=== PATIENT | female | born 1990 | race Asian ===

== ENCOUNTER 2023-10-31 16:55 | Inpatient (IN) | payer BC, SELFPAY ==
[2023-10-31] VITALS (9 sets, daily range): BP systolic 114–130; BP diastolic 56–79; PULSE 98–112; RESP 20; TEMP 36.9–37.8; O2SAT 95; BMI 35.2
[2023-10-31 18:44] LABS: Basophils Absolute Auto 0.01 K/uL (0.00-0.30); Basophils Percent Auto 0.1 % (0.0-3.0); Eosinophils Absolute Auto 0.01 K/uL (0.00-0.50); Eosinophils Percent Auto 0.1 % (0.0-7.0); Hemoglobin* 13.6 gm/dL (12.0-16.0); Immature Granulocytes Abs Auto 0.03 K/uL (0.00-0.30); Immature Granulocytes Pct Auto 0.3 %; Lymphocytes Percent Auto 5.9 % (20-44); Mean Corpuscular HGB Conc 32 gm/dL (32-36); Mean Corpuscular Hemoglobin 29 pg (26-34); Mean Corpuscular Volume 91 fL (80-100); Monocytes Percent Auto 6.1 % (0.0-11.0); Neutrophils Percent Auto 87.5 % (42.0-72.0); Platelet Count* 275 K/uL (140-440); RDW Coefficient of Variation % 13.5 % (11.5-15.5); Red Blood Count 4.62 m/uL (4.00-5.20); White Blood Count* 10.27 K/uL (4.50-11.00)
[2023-10-31 18:45] LABS: Slide Review Reflex No
--- NOTE | 2023-10-31 18:56 | PM.OBHPLI ---
OB - H&P: HPI Labor/Induction History of Present Illness Date Seen: 10/31/23 Chief Complaint: The patient is a 33 year old 1 para 0 at 38+6 weeks gestation by LMP and confirmed with 1st trimester US, who presents for IOL for diet controlled GDM. Chief complaint: Maternity Narrative: Anaid Edwards is a 33 year old at 38+6 weeks by LMP here for IOL for diet controlled GDM. has otherwise been uncomplicated, she is GBS negative rh+, rubella immune. She denies LOF, having occasional cramping. Baby is active. She has a mild headache today, but not significant enough to want to take tylenol. No swelling. Otherwise feeling well. History of Present Dating criteria: based on LMP care: good care Ultrasounds: normal 1st trimester US and normal mid trimester US complications: gestational diabetes (well controlled with diet) Medical complications: none Labs Blood type: O (+) positive Rubella: immune RPR/VDLR: nonreactive GBS status: negative HBsAG: negative Review of Systems Status of ROS: Reports: 6 or more systems reviewed and unremarkable except as noted in History and below Meds Home Medications and Allergies Home Medications Medication Instructions Recorded Confirmed Type No Known Home Medications 11/04/22 11/04/22 History Allergies Allergy/AdvReac Type Severity Reaction Status Date / Time No Known Drug Allergies Allergy Verified 11/04/22 11:23 OB - H&P: Exam Physical Exam: Vital signs: Temp Pulse BP 99.2 F 107 H 130/79 10/31/23 17:14 10/31/23 17:14 10/31/23 17:14 Constitutional: Constitutional: no acute distress Routine HEENT Exam: Head: Present atraumatic Eye: Present EOMI and PERRL ENT: Present mucous membranes moist Routine Neck Exam: Neck: Present full ROM Routine Respiratory Exam: Respiratory: Present CTA bilaterally Routine Cardiovascular Exam: Cardiovascular: RRR Routine Exam: Perineum Description: Normal Detailed Labor and Delivery Exam: Patient Gravid: Yes Dilation (cm): 1 Effacement (%): 60 Cervix position: mid Consistency: soft Cervical ripeness score: 8 Fetus (Single): Station: -1 Routine Back/Spine/Pelvis Exam: Back/Spine: full ROM Routine Skin Exam: Present intact Routine Neurological Exam: Present alert, oriented X3 and CN II-XII intact Routine Psychiatric Exam: Present normal affect OB - Results Labs Labs: Short CBC 10/31/23 Range/Units 18:36 WBC 10.27 (4.50-11.00) K/uL Hgb 13.6 (12.0-16.0) gm/dL Hct 42.0 (33.0-51.0) % Plt Count 275 (140-440) K/uL OB - Problem Based A/P Additional Plan (1) Term : Status: Acute (2) Gestational diabetes: Status: Acute Plan Cook catheter placed without difficulty. 60 mL in both the intrauterine and intravaginal balloons. Diabetes management per protocol. Delivery/Labor/Induction Plan Induction method: Intracervical balloon catheter
[2023-10-31] MEDS: SODIUM CHLORIDE 0.9 % (FLUSH) 10 ML SYRINGE IVF (19:49)
[2023-10-31] MEDS: LACTATED RINGERS 1000 ML 1,000 ML 950 ML IV (19:49)
[2023-10-31] MEDS: LACTATED RINGERS 1000 ML 1,000 ML 125 ML IV (20:54)
[2023-10-31] MEDS: ACETAMINOPHEN 500 MG TABLET 1000 MG PO (21:06)
[2023-10-31] MEDS: MORPHINE 10 MG/ML inj IM (21:25)
[2023-10-31] MEDS: hydrOXYzine pamoate 25 MG CAPSULE 100 MG PO (21:26)
[2023-10-31] MEDS: OXYTOCIN 30 unit/500 ML in NS 30 UNIT/500 ML BAG IVPB (23:30)
[2023-11-01] VITALS (83 sets, daily range): BP systolic 103–139; BP diastolic 48–85; PULSE 69–121; RESP 16–18; TEMP 36.6–38.5; O2SAT 96–100
[2023-11-01] MEDS: ACETAMINOPHEN 500 MG TABLET 1000 MG PO ×3 (04:09→15:51)
[2023-11-01 04:34] LABS: Basophils Absolute Auto 0.01 K/uL (0.00-0.30); Basophils Percent Auto 0.1 % (0.0-3.0); Eosinophils Absolute Auto 0.01 K/uL (0.00-0.50); Eosinophils Percent Auto 0.1 % (0.0-7.0); Hematocrit 39.3 % (33.0-51.0); Hemoglobin* 12.7 gm/dL (12.0-16.0); Immature Granulocytes Abs Auto 0.02 K/uL (0.00-0.30); Immature Granulocytes Pct Auto 0.2 %; Lymphocytes Percent Auto 9.6 % (20-44); Mean Corpuscular HGB Conc 32 gm/dL (32-36); Mean Corpuscular Hemoglobin 29 pg (26-34); Mean Corpuscular Volume 91 fL (80-100); Monocytes Percent Auto 7.7 % (0.0-11.0); Neutrophils Percent Auto 82.3 % (42.0-72.0); Platelet Count* 246 K/uL (140-440); RDW Coefficient of Variation % 13.6 % (11.5-15.5); Red Blood Count 4.34 m/uL (4.00-5.20); White Blood Count* 9.36 K/uL (4.50-11.00)
[2023-11-01 04:35] LABS: Slide Review Reflex No
[2023-11-01] MEDS: LACTATED RINGERS 1000 ML 1,000 ML 125 ML IV ×2 (04:55→11:48)
[2023-11-01] MEDS: LACTATED RINGERS 1000 ML 1,000 ML 1125 ML IV (09:34)
[2023-11-01] MEDS: ROPIVACAINE 0.2% 100 ml 100 ML 12 MG EPIDURAL (11:41)
--- NOTE | 2023-11-01 11:48 | PM.ANBPRC ---
[facility] Medical History Gestational diabetes Social History 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 She has a high school education She exercises once a week She does not smoke or use recreational drugs She drinks alcohol 1-2 drinks a week What is your current living situation?: I presently have a place to live Problems where you live: no known problems In the past 12 months, utilities in danger of being shut off: no In past 12 months, lack of transportation kept you from medical appts, meetings, work, or getting things needed for daily living: no In the past 12 mos, have been you worried that your food would run out before you had money to buy more?: never true In the past 12 mos, the food you bought just didn't last and you didn't have money to buy more?: never true Smoking Status: Never smoker How often does anyone, including family, friends and others, physically hurt you: never How often does anyone, including family, friends and others, insult or talk down to you: never How often does anyone, including family, friends and others, threaten you with harm: never How often does anyone, including family, friends and others, scream or curse at you: never Meds Home Medications and Allergies Home Medications Medication Instructions Recorded Confirmed Type docosahexaenoic acid 1 cap PO DAILY 10/31/23 10/31/23 History Allergies Allergy/AdvReac Type Severity Reaction Status Date / Time No Known Drug Allergies Allergy Verified 11/01/23 07:43 Results Labs Labs: Laboratory Results - last 24 hr 10/31/23 11/01/23 18:36 04:25 WBC 10.27 9.36 RBC 4.62 4.34 Hgb 13.6 12.7 Hct 42.0 39.3 MCV 91 91 MCH 29 29 MCHC 32 32 RDW Coeff of Sunitha 13.5 13.6 Plt Count 275 246 Neut % (Auto) 87.5 H 82.3 H Lymph % (Auto) 5.9 L 9.6 L Pickens % (Auto) 6.1 7.7 Eos % (Auto) 0.1 0.1 Baso % (Auto) 0.1 0.1 Neut # (Auto) 9.00 H 7.70 H Lymph # (Auto) 0.60 L 0.90 Pickens # (Auto) 0.60 0.70 Eos # (Auto) 0.01 0.01 Baso # (Auto) 0.01 0.01 Abs Immat Gran (auto) 0.03 0.02 Imm/Tot Granulo (auto) 0.3 0.2 Blood Type O Positive Antibody Screen NEGATIVE Vital Signs Vital Signs: Last Vital Signs Temp 98.8 F 11/01/23 11:30 Pulse 85 11/01/23 11:47 Resp 18 11/01/23 09:33 BP 120/65 11/01/23 11:47 Pulse Ox 96 11/01/23 02:49 Weight: 90.356 kg Height: 160.02 cm Anesthesia Procedures Epidural Insertion Patient Location: OB Start Time: 11:20 Stop Time: 11:48 Start Date: 11/01/23 Stop Date: 11/01/23 Reason for Block: procedure for pain Patient Position: sitting Performed By: Carson Dumont Preanesthetic Checklist: IV checked, risks and benefits discussed, monitors and equipment checked, pre-op evaluation, timeout performed and anesthesia consent Prep: chlorhexidine gluconate Monitoring: blood pressure monitoring, continuous pulse oximetry and heart rate Approach: midline Vertebral Space: lumbar (1-5) Epidural Technique: NADINE saline Needle Type: Tuohy needle Injection Technique: continuous catheter Needle gauge: 17 Needle Length (cm): 10 cm Needle Insertion Depth (cm): 6 Catheter Gauge: 19 Catheter Type: multi-orifice Catheter at skin depth (cm): 13 Test Dose Result: negative and lidocaine 1.5% with epinephrine 1 to 200,000
--- NOTE | 2023-11-01 12:07 | P.OBPN_ITS ---
Subjective Date Seen: 11/01/23 Narrative: Anaid is a 33 at 39 weeks who started IOL last night for GDM. She had a cook catheter placed without difficulty on 10/31/23. She was noted to have a temp of 99 on admit and this increased to 100.5 overnight. Fever responded to acetaminophen and CBC was reassuring. She has had no other focal symptoms of infection. FHTs do tend to be tachycardic when temp increases, but category 1 after acetaminophen. The have been 2 prolonged decels this morning, one while sitting up for epidural. Patient is now comfortable with epidural and FHTs category 1. Objective Vital Signs: Last Vital Signs Temp 98.8 F 11/01/23 11:30 Pulse 81 11/01/23 12:03 Resp 18 11/01/23 09:33 BP 118/65 11/01/23 12:03 Pulse Ox 96 11/01/23 02:49 Pelvic Exam Dilation (cm): 5 Effacement (%): 90 Station: -1 Contractions Monitor mode: External Contraction Frequency: 2-4 Contraction pattern: Regular Contraction intensity: Moderate Pitocin Rate (mU/min): 4 Assessment Assessment: active labor and induction ongoing Station: -1 Amniotic Membrane Status: AROM (clear fluid) Status: Category l Heart Rate Baseline: 150 Consulting Technical Director Variability: Moderate (6-25) Monitor Accelerations: Absent Monitor Decelerations: Variable Plan Plan: Continue pitcoin per protocol. Blood sugar monitoring/management per protocol. Anticipate
[2023-11-01] MEDS: AMPICILLIN 2 GM in 0.9 % SODIUM CHLORIDE Mini-bag 100 ML IVPB ×2 (16:54→23:09)
--- NOTE | 2023-11-01 17:14 | PM.OBPNL ---
Subjective Date Seen: 11/01/23 Narrative: Mom developed chills and nausea around 1500, was hypoglycemic and temp went up to 99, acetaminophen given and 30 minutes later temp up to 101.3. FHTs 180-200 and given tachycardia and maternal fever, antibiotics ordered for presumed chorio. Given her temp at started last evening on arrival with temp of 99, flu and covid swabs also obtained. around the same time, she also developed tachysystole and pitocin turned down from 7 to 4 units. Objective Vital Signs: Last Vital Signs Temp 100.5 F H 11/01/23 17:00 Pulse 96 11/01/23 17:10 Resp 16 11/01/23 12:09 BP 112/57 L 11/01/23 17:10 Pulse Ox 96 11/01/23 02:49 Pelvic Exam Dilation (cm): 6 Effacement (%): 90 Station: 0 Contractions Monitor mode: External Contraction pattern: Irregular Contraction intensity: Moderate Pitocin Rate (mU/min): 4 Assessment Station: -1 Amniotic Membrane Status: AROM (clear fluid) Status: Category l Heart Rate Baseline: 190 Snf Variability: Moderate (6-25) Monitor Accelerations: Absent Monitor Decelerations: None Plan Plan: Discussed the [facility] Insulator Helper communications supervisor. Flu/covid swabs obtained Abx started for presumed chorio. If FHTs normalize with antipyretics and abx, will likely need IUPC to help titrate pitocin since she has not been making adequate cervical change. If FHTs do not normalize or no cervical change, will plan on .
--- NOTE | 2023-11-01 18:18 | P.OBCN_ITS ---
OB - CN: HPI Date of Consult Time Seen by Provider: 18:18 Date Seen: 11/01/23 Consult date: 11/01/23 Requesting Physician: Susanna Sutton MD Primary Care Provider: Susanna Sutton MD Consult Narrative Narrative: Anaid is a 33 year old G2 P 0010 at 39 weeks gestation that was admitted to the Center on 10/31/23 for IOL due to GDM A1. Her labor course has been complicated nonreassuring heart rate tracing. I was consulted at 1645 to review her NST and make recommendations. NST reviewed: * 1095-1142: tachycardia of 180-190s * 0013-0975: tachycardia of 180-190s * 0900: 5 minutes prolonged decel down to the 50s * 1132: 4 minutes prolonged decel down to the 70s * 1400: 2 minutes prolonged decel down to the 60 * 1500: tachycardia to 180-200s persistently. Moderate variability, positive acceleration and negative deceleration. Additionally, patient had a fever at 0400 Patient (100.5 and 100.9F) but wasn't diagnosed with chorioamnionitis and started on antibiotic until fever of 101.3@ around 1630. Amp and gent were started after that fever. During this time, she progressed to 5.5/75/0. She's only on 4u of pitocin and has been unable to titrate up due to nonreassuring NST. I performed a cervical exam and confirmed previous check of 5.5/75/0. She is still latent labor and cervix has been unchanged since noon. There is notable caput. I discussed with patient her clinical picture. I do recommend a delivery given that NST has not been reassuring for several hours with no cervical change. Her fevers are also getting worse. Patient is, of course, overwhelmed and emotional about the prospect of the delivery but understands why I am recommending the . The patient was consented for section and blood. She understands that the four main categories of risk include pain, bleeding, infection, and damage to surrounding structures. Regarding infection, she understands that we will be delivering appropriate antibiotics, however that the risk of infection following section still is approximately 5%, possibly higher given that she alrea dy has an intrauterine infection.She understands that though the risk is very low that there is always a risk of damage to the bladder, uterus, ovaries, fallopian tubes, bowels, ureters, or even the fetus. She understands that most injuries can be addressed at the time of surgery, however, such an injury may require additional surgeries to fix. Lastly, she understands that a section carries a risk of bleeding, and that while this bleeding can be addressed with multiple medical and surgical modalities (including hysterectomy), that there is the possibility of needing a blood transfusion. She has a higher risk of bleeding due to have labored with pitocin use and having chorioamnionitis. She reports she would accept a blood transfusion understanding the risks of a 1/200,000 risk of Hepatitis and 1/2,000,000 risk of HIV as well as the risk of having an allergic reaction to the blood products. She further understands that this reaction is typically mild, however can be severe inclu ding respiratory distress and necessitating ICU-level care. Lastly, she understands that a section does increase risks for future pregnancies and deliveries including, but not limited to, the risk of uterine rupture or placenta accreta. After counseling, Anaid and her spouse did take about 15 minutes to think about the recommendation. Ultimately, they opted to proceeding with delivery rather than to continue the induction. All questions answered to patient's satisfaction. Consent form signed. Of note, I was informed by charge nurse afterwards that the gentamicin had not been running this whole time as the clamp was never released on the line. She received ampicillin but not gentamicin. An incident report was filed. I asked for a second IV to run the gentamicin and cli ndamycin at the same time for chorio/preoperative antibiotic. History of Present complications: gestational diabetes (well controlled with diet) History History 2 Elective abortions Para 1 Spontaneous abortions Hx # Term Pregnancies Ectopic pregnancies Hx # Pregnancies Multiple births Number of Living Children 0 Labs Blood type: O (+) positive Rubella: immune RPR/VDLR: nonreactive GBS status: negative HBsAG: negative OB Labs: Lab Assessment Start: 10/31/23 17:05 Freq: ONCE Status: Complete Protocol: PC.OBGBS Activity Type Activity Date Activity User E-sign Co-sign Detail Recorded Client Recorded Date Recorded By Document 10/31/23 17:12 HCR [id number] 10/31/23 17:12 HCR 10/31/23 17:12 Lab Assessment GBS Status negative GBS Additional Criteria None No Treatment Needed OK Are Labs Available Yes Maternal Blood Type O Maternal RH Factor Positive Evaluate Maternal Rubella Immune Status Immune Hepatitis B Surface Antigen Negative Maternal HIV Status Negative Maternal Syphillis (RPR) Status Negative [facility] Medical History Gestational diabetes Social History 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 She has a high school education She exercises once a week She does not smoke or use recreational drugs She drinks alcohol 1-2 drinks a week What is your current living situation?: I presently have a place to live Problems where you live: no known problems In the past 12 months, utilities in danger of being shut off: no In past 12 months, lack of transportation kept you from medical appts, meetings, work, or getting things needed for daily living: no In the past 12 mos, have been you worried that your food would run out before you had money to buy more?: never true In the past 12 mos, the food you bought just didn't last and you didn't have money to buy more?: never true Smoking Status: Never smoker How often does anyone, including family, friends and others, physically hurt you : never How often does anyone, including family, friends and others, insult or talk down to you: never How often does anyone, including family, friends and others, threaten you with harm: never How often does anyone, including family, friends and others, scream or curse at you: never Meds Home Medications and Allergies Home Medications Medication Instructions Recorded Confirmed Type docosahexaenoic acid 1 cap PO DAILY 10/31/23 10/31/23 History Allergies Allergy/AdvReac Type Severity Reaction Status Date / Time No Known Drug Allergies Allergy Verified 11/01/23 07:43 OB - H&P: Exam Physical Exam: Vital signs: Temp Pulse Resp BP Pulse Ox 100.5 F H 93 16 125/64 96 11/01/23 17:00 11/01/23 18:11 11/01/23 12:09 11/01/23 18:11 11/01/23 02:49 OB - Results Labs Labs: Short CBC 10/31/23 11/01/23 Range/Units 18:36 04:25 WBC 10.27 9.36 (4.50-11.00) K/uL Hgb 13.6 12.7 (12.0-16.0) gm/dL Hct 42.0 39.3 (33.0-51.0) % Plt Count 275 246 (140-440) K/uL OB - CN: A/P Assessment and Plan (1) Term : Status: Acute (2) Gestational diabetes: Status: Acute
[2023-11-01 18:25] LABS: PCR FLU A Negative PCR FLU A (Negative); PCR FLU B Negative PCR FLU B (Negative); SARS PCR* Negative SARS-CoV-2 (Negative)
[2023-11-01 18:34] LABS: Basophils Percent Auto 0.2 % (0.0-3.0); Hematocrit 36.8 % (33.0-51.0); Hemoglobin* 12.2 gm/dL (12.0-16.0); Lymphocytes Percent Auto 9.3 % (20-44); Mean Corpuscular HGB Conc 33 gm/dL (32-36); Mean Corpuscular Hemoglobin 30 pg (26-34); Mean Corpuscular Volume 90 fL (80-100); Monocytes Percent Auto 7.5 % (0.0-11.0); Platelet Count* 229 K/uL (140-440); RDW Coefficient of Variation % 13.6 % (11.5-15.5); Red Blood Count 4.07 m/uL (4.00-5.20)
[2023-11-01 18:35] LABS: Slide Review Reflex No
[2023-11-01] MEDS: CLINDAMYCIN 900 MG/50 ML-D5W IVPB (18:40)
--- NOTE | 2023-11-01 19:08 | W.ANESCHARGE ---
Anesthesia Charges Start Date/Time Anesthesia Start Date: 11/01/23 Anesthesia Start Time: 18:47 Stop Date/Time Anesthesia Stop Date: 11/01/23 Anesthesia Stop Time: 20:20 Summary Emergency: DIRECTOR OF MANAGED SERVICES
[2023-11-01] MEDS: KETOROLAC 30 MG/ML inj IVP (20:06)
--- NOTE | 2023-11-01 20:07 | W.PM.NB ---
Nerve Block Nerve Block Time Seen by Provider: 20:00 Date Seen: 11/01/23 Type of block requested by surgeon for post-operative analgesia: TAP Side: bilateral Time out performed: Yes Verification of patient name: Yes Verification of date of : Yes Continuous monitoring Was continuous monitoring of O2 sat, B/P, hearing aid assistant, recorded every 15 minutes?: Yes Procedure Checklist: sterile prep, needles and gloves Ultrasound guided. Images saved: Yes Medications given in 5ml increments after negative aspiration: Marcaine %: 0.25 mL: 30 Needle gauge: 21 and Exparel mL: 10 Needle gauge: 21 Patient tolerated procedure well: Yes Block Charges Block Charge (with Pro Fee): TAP Bilateral Use of Ultrasound Machine for Block: Yes- US Guidance/pain block
[2023-11-01] MEDS: LOPERAMIDE HCL 2 MG CAPSULE 4 MG PO (20:40)
--- NOTE | 2023-11-01 21:19 | PM.OBPRCCS ---
Procedure Time Seen by Provider: 21:00 Date of procedure: 11/01/23 Procedure Done: only Will [facility] bill your pro fee for this procedure?: Yes Procedure Description: DELIVERY BY SECTION Date of Service: 11/01/23 Delivery time: 2154 Summary: Admitted for IOL at 39 weeks due to gestational diabetes (A1), Primary Lower uterine transverse section, Pfannenstiel, Closed with sutures, QBL 1132 cc, Findings: Bandl ring noted, otherwise normal uterus. Moderate amount of meconium. Normal bilateral ovaries and tubes. 8/9, weight 3399 g. Primary Indication: 1. Nonreassuring heart tracing remote from delivery 2. Chorioamnionitis Procedures: Primary Lower uterine transverse section Specimens Removed: Placenta Surgeon: Roseline Ramirez MD Anesthesia: Epidural and TAP Report: Prophylactic antibiotic, 2g of ampicillin, 5mg/kg of gentamicin, and 900mg of clindamycin was given before patient was taken to OR. After arrival to the operating room patient was placed in the supine position with left lateral tilt after re-dosing of epidural anesthesia. Laparotomy A pfannenstiel incision was made through the anterior abdominal wall with #10 scalpel approximately 2 cm above the pubic symphysis. The incision was extended sharply with the #10 scalpel through the subcutaneous tissue to the level of fascia. The fascia was entered sharply with a #10 scalpel (Pfannenstiel) in the midline and extended in semi-elliptical fashion bluntly with digits. The rectus muscles were in the midline bluntly with digits. The peritoneum was then entered bluntly. The peritoneal incision was then extended superiorly and inferiorly under direct visualization with care being taken to avoid bladder and bowel. No adhesions were noted. The peritoneal incision was enlarged bluntly by lateral traction from the surgeon's and records management assistant's hand. Deon retractor was inserted into the abdomen. Delivery A bladder flap was developed by grasping with Syrian forcep and enter with Metzenbaun scissor. Then sharp and blunt dissection with Metzenbaum scissor and fingers were performed. Bladder flap developed due to poor decompression of the bladder by the plummer cath. A low transverse hysterotomy was made then with #10 scalpel and extended laterally and cephalad with fingers in a low transverse fashion with Manu Elizabeth technique with care being taken to avoid injury to the fetus. The amniotic cavity (membrane) was then entered with spontaneous rupture of membrane, and the amniotic fluid was noted to be moderate meconium, fetus was delivered cephalic. With delivery of the baby, no extension was noted. Placenta was delivered spontaneously with steady traction on cord and manual separation of placenta from uterine wall. Closure Uterine cavity was cleaned after placental delivery with lap sponge x 2. Severe uterine atony was noted. The hysterotomy was closed in two layers with stitches using 0 vicryl with continuous locking stitches and 0 Monocryl in continuous imbricating layer. 3 additional [id number] were placed left uterine angle and midline. at Hemostasis was achieved as needed with electrocautery. The ovaries/tubes/uterine surface were evaluated. They were found to be normal. Campos was applied to the bladder flap and hysterotomy. Deon retractor removed and hemostasis was confirmed again. Fascia was closed with running stitches using 0 Vicryl. Subcutaneous layer was irrigated. Hemostasis was checked for and found to be adequate. The subcutaneous layer was closed with running 2-0 Vicryl sutures. The skin was closed with 4-0 Vicryl subcuticular sutures . The incision was cleaned , Steri-Strips applied, and silver dressing placed due to increased BMI and chorioamnionitis. Intraoperative Complications: Intraoperative hemorrhage due to severe uterine atony QBL: 1132 cc Uterotonics: 40 units of Pitocin, Methergine, Hemabate x2, 1 g of TXA x2 Disposition: The patient tolerated the procedure well. She was recovered in Obstetric PACU for close monitoring in stable condition, with a contracted uterus and normal transvaginal bleeding. The was sent to mother's bedside. The placenta was sent to pathology due to an scheduled delivery, nonreassuring heart tracing and chorioamnionitis. Debrief with OR team performed and specimen reviewed at the conclusion of the procedure.
[2023-11-02] VITALS (25 sets, daily range): BP systolic 104–114; BP diastolic 67–78; PULSE 79–89; RESP 16–18; TEMP 36.6–37.4; O2SAT 95–99
[2023-11-02] MEDS: diphenhydrAMINE 50 MG/ML inj 12.5 MG IVP (00:57)
[2023-11-02] MEDS: KETOROLAC 30 MG/ML inj IVP ×4 (01:47→20:04)
[2023-11-02] MEDS: LACTATED RINGERS 1000 ML 1,000 ML 125 ML IV ×2 (01:47→10:45)
[2023-11-02] MEDS: AMPICILLIN 2 GM in 0.9 % SODIUM CHLORIDE Mini-bag 100 ML IVPB ×3 (05:02→17:06)
[2023-11-02] MEDS: DOCUSATE SODIUM 100 MG CAPSULE PO (07:45)
[2023-11-02] MEDS: SODIUM CHLORIDE 0.9 % (FLUSH) 10 ML SYRINGE IVF (07:49)
--- NOTE | 2023-11-02 08:15 | P.OBPN_ITS ---
OB - PN:Subj Subjective Time Seen by Provider: 08:17 Date Seen: 11/02/23 Patient comments OB post-: pain well controlled and tolerating diet status: (Working on latch with the RN assistance. Started donor milk supplementation last night ) and other Narrative: The patient feels well.? The pain is well controlled with current medications.?She is afebrile and normotensive this morning. She has no new complaints.? Urinary output is adequate via urinary catheter. Cowan catheter will removed by RN this morning.? Has a good appetite, is tolerating a general diet, No flatus yet, Bowel sounds are mildly active.? Has small to scant amount of rubra lochia. fundus is firm.? She ambulated well last night and would like to get up after breakfast this morning. Hgb will be repeated this morning. ? OB - PN: Obj Exam Physical Exam: Vital signs: Temp Pulse Resp BP Pulse Ox O2 Del Method 98.5 F 81 16 114/74 100 Room Air 11/02/23 05:03 11/02/23 05:03 11/02/23 08:08 11/02/23 05:03 11/01/23 20:53 11/02/23 05:03 Narrative: GENERAL APPEARANCE:? normal affect, alert, no distress? MOOD:? appropriate? CHEST:? clear to auscultation and percussion? HEART:? regular rate and rhythm? ABDOMEN:? soft, non-tender the uterine fundus is firm and is appropriate for the stage of recovery.?Dressing clean, dry, and intact. EXTREMITIES:? SCD in placed not assessed ? Constitutional: Constitutional: no acute distress Routine Cardiovascular Exam: Cardiovascular: Present RRR, S1 and S2 Detailed Abdominal Exam: Bowel sounds: hypoactive Routine Extremities Exam: Comments: SCD in placed. not able to assess OB - PN: Obj Data Labs Labs: Laboratory Results - last 24 hr 11/01/23 11/01/23 16:41 18:27 WBC 11.20 H RBC 4.07 Hgb 12.2 Hct 36.8 MCV 90 MCH 30 MCHC 33 RDW Coeff of Sunitha 13.6 Plt Count 229 Neut % (Auto) 82.0 H Lymph % (Auto) 9.3 L Rogers % (Auto) 7.5 Eos % (Auto) 0.0 Baso % (Auto) 0.2 Neut # (Auto) 9.20 H Lymph # (Auto) 1.00 Rogers # (Auto) 0.80 Eos # (Auto) 0.00 Baso # (Auto) 0.00 Abs Immat Gran (auto) 0.10 Imm/Tot Granulo (auto) 1.0 SARS-CoV-2 (PCR) Negative SARS-CoV-2 Influenza Type A (PCR) Negative PCR FLU A Influenza Type B (PCR) Negative PCR FLU B OB - PN: A/P Delivery Assessment and Plan (1) Gestational diabetes: Status: Acute Assessment and Plan: PP blood sugar 77 (2) Lactating mother: Status: Acute (3) care following delivery: Problem details: Primary C-S for intolerance to labor and chorioamnionitis Status: Acute (4) PPH ( hemorrhage): Status: Acute (5) Chorioamnionitis: Status: Acute Plan day: 1 Plan: routine care Comments: Anticipate D/C day 3 PP
[2023-11-02 09:32] LABS: HGB WITH REFLEX TO FERRITIN 10.4 (12.0-16.0)
[2023-11-02 10:28] LABS: Ferritin* 35.5 ng/mL (6.24-137.0)
[2023-11-02] MEDS: ACETAMINOPHEN 500 MG TABLET 1000 MG PO ×2 (11:28→17:36)
[2023-11-03] MEDS: KETOROLAC 30 MG/ML inj IVP (01:31)
[2023-11-03 05:05] VITALS: BP 120/79; PULSE 69; RESP 16; TEMP 36.4
[2023-11-03] MEDS: ACETAMINOPHEN 500 MG TABLET 1000 MG PO ×3 (05:12→19:20)
--- NOTE | 2023-11-03 07:26 | PM.OBPNVD1 ---
OB - PN:Subj Subjective Date Seen: 11/03/23 Narrative: Anaid is a 33 y.o. G 2 P 1 who was admitted to [facility] & [facility] for IOL for GDMA1. ?She had a section that was complicated by chorioamnionitis and hemorrhage. The patient feels well. ?The pain is well controlled with current medications. ?She has no new complaints. ?She is breast feeding and reports things are going ok. She desires to see today. the patient has done well.? Vitals have been stable.? She has remained afebrile.? Has a good appetite, is tolerating a general diet. ?She is voiding without difficulty.? She is passing gas and has not had a bowel movement.? She is ambulating and denies any dizziness.? Has small amount of rubra lochia. OB - PN: Obj Exam Physical Exam: Vital signs: Temp Pulse Resp BP Pulse Ox O2 Del Method 97.6 F 69 16 120/79 97 Room Air 11/03/23 05:05 11/03/23 05:05 11/03/23 05:05 11/03/23 05:05 11/02/23 16:15 11/03/23 05:05 Narrative: GENERAL APPEARANCE:? normal affect, alert, no distress MOOD:? appropriate CHEST:? clear to auscultation HEART:? regular rate and rhythm ABDOMEN:? soft, non-tender the uterine fundus is at Umbilicus, Midline and is appropriate for the stage of recovery. EXTREMITIES:? normal and trace edema INCISION: Dressing in place; clean, dry, and intact Urinary Catheter Management: Urethral: Cath placed during this visit: yes, but has since been removed by the nurse Reason for continuing: decision to DC catheter Insertion date: 11/01/23 Insertion time: 12:01 Removal date: 11/02/23 Removal time: 10:05 OB - PN: Obj Data Labs Labs: Laboratory Results - last 24 hr 11/02/23 07:51 Hgb 10.4 L Ferritin 35.5 OB - PN: A/P Delivery Assessment and Plan (1) care following delivery: Problem details: Primary C-S for intolerance to labor and chorioamnionitis Status: Acute (2) Gestational diabetes: Status: Acute (3) Lactating mother: Status: Acute (4) PPH ( hemorrhage): Status: Acute (5) Chorioamnionitis: Status: Acute Plan day: 2 Plan: routine care Comments: plan: Anticipate discharge home tomorrow. , may see if needed Hgb 10.4. Chorioamnionitis. Afebrile >24 hours. Gestational Diabetes. Fasting BG 77. No further follow-up needed during hospital stay. Plan 2 hour gct at 6 week visit.
[2023-11-03 07:56] VITALS: BP 121/81; PULSE 74; RESP 16; TEMP 36.5; O2SAT 97
[2023-11-03] MEDS: DOCUSATE SODIUM 100 MG CAPSULE PO (08:26)
[2023-11-03] MEDS: IBUPROFEN 600 MG TABLET PO ×3 (08:26→22:25)
[2023-11-03 16:09] VITALS: BP 123/69; PULSE 93; RESP 16; TEMP 36.7
[2023-11-03 19:24] VITALS: BP 117/71; PULSE 91; RESP 16; TEMP 36.7; O2SAT 95
[2023-11-04] MEDS: ACETAMINOPHEN 500 MG TABLET 1000 MG PO (01:58)
[2023-11-04] MEDS: OXYCODONE 5 MG TABLET PO (01:59)
[2023-11-04 02:08] VITALS: BP 126/79; PULSE 71; RESP 16; TEMP 36.4; O2SAT 97
--- NOTE | 2023-11-04 07:36 | PM.OBDSVD1 ---
DS: Providers Provider Date Seen: 11/04/23 Date of admission: 10/31/23 16:55 Primary care physician: Susanna Sutton MD Admitting Clinician: Susanna Sutton MD Consults: Roseline Ramirez MD Attending Physician on discharge: Dong Morocho CNM Date of Discharge: 11/04/23 DS: Diagnosis Discharge Diagnosis (1) care and examination immediately after delivery: Status: Acute (2) care following delivery: Status: Acute Problem details: Primary C-S for intolerance to labor and chorioamnionitis (3) PPH ( hemorrhage): Status: Acute (4) Chorioamnionitis: Status: Acute (5) Lactating mother: Status: Acute (6) Gestational diabetes: Status: Acute Exam Narrative: Exam Narrative: GENERAL APPEARANCE:? normal affect, alert, no distress MOOD:? appropriate CHEST:? clear to auscultation HEART:? regular rate and rhythm ABDOMEN:? soft, non-tender the uterine fundus is 1 cm below Umbilicus, Midline and is appropriate for the stage of recovery. PERINEUM:? intact EXTREMITIES:? normal and trace edema Incision: silver nitrate dressing in place, clean dry intact Const: Vital Signs, click to edit/add: Vital Signs - 24 hr 11/03/23 07:56 11/03/23 16:09 11/03/23 19:24 Temperature 97.7 F 98.0 F 98.1 F Pulse Rate [Blood Pressure Cuff] 74 93 91 Respiratory Rate 16 16 16 Blood Pressure [Le ft Arm] 121/81 123/69 117/71 Pulse Oximetry 97 95 Oxygen Delivery Me thod Room Air Room Air Room Air 11/04/23 02:08 Temperature 97.6 F Pulse Rate [Blood Pressure Cuff] 71 Respiratory Rate 16 Blood Pressure [Le ft Arm] 126/79 Pulse Oximetry 97 Oxygen Delivery Me thod Room Air Documenting provider has reviewed patient's vital signs: yes OB - DS: Summary Hospital Course Hospital Course: Anaid is a 33 y.o. who was admitted to [facility] & D for induction of labor. ?She had a primary for Chorioamnionitis and non-reassuring heart tones.?The patient feels well. ?The pain is well controlled with current medications. ?She has no new complaints. ?She is breast feeding and reports things are going well, her milk is not in yet.? the patient has done well.? Vitals have been stable.? She has remained afebrile.? Has a good appetite, is tolerating a general diet. ?She is voiding without difficulty.? She is passing gas and has had a bowel movement.? She is ambulating and denies any dizziness.? Has Small amount of rubra lochia. ?She is undecided about prevention. Peripartum Data delivery method: Primary C/S; Labored Procedures: Procedures Operation Date: 11/01/23 19:00 Actual Procedure Side Surgeon p Primary Section Roseline Ramirez MD Infant Gender: Male Discharge Plan: Home Status at Discharge Functional status at discharge: independent ambulation Overall status at discharge: patient is progressing back to baseline Time Spent with Patient Time attestation: Total time spent providing and/or coordinating discharge services: Time spent: Less than 30 minutes Discharge Plan Discharge Disposition: Home, Self-Care Date of Admission: 10/31/23 16:55 Attending Provider on Discharge: Dong Villagomez Primary Care Provider: Susanna Sutton Condition: Stable Anticipated Discharge Date/Time: 11/04/23 12:00 Discharge Medications: New acetaminophen 500 mg Tablet 1,000 mg PO Q6H PRN (Reason: pain/fever) Qty: 0 0RF docusate sodium 100 mg Capsule 100 mg PO DAILY Qty: 90 4RF ibuprofen 600 mg Tablet 600 mg PO Q6H PRN (Reason: Pain) Qty: 60 0RF oxycodone 5 mg Tablet 5 - 10 mg PO Q4H PRN (Reason: Pain) Qty: 10 0RF Continued docosahexaenoic acid [ DHA] 1 cap PO DAILY Discharge Orders: Discharge Order (Routine); Ordered 11/04/23 Ordered By: Dong Villagomez Patient Education: OB Over the Counter Medication Information, OB /Breast Feeding Additional Instructions: Discharge instructions were reviewed with the patient including signs and symptoms of infection and home going medications Lifting Restrictions: 20 pounds for 6 weeks No not submerge incision under water X 2 weeks? Nothing vaginally for 6 weeks: no tampons or intercourse Do not drive while taking narcotic pain medication(s) Off Work or School for 6 weeks 7 day nurse visit to remove dressing. 2-week visit: incision check, discuss infant feeding concerns, review control options and screen for anxiety/depression. 6-week visit for an annual exam. consultation services are available to all mothers and babies for the first year after delivery.? To make an appointment, please call [phone]. Activity Level: Activity as Tolerated Discharge Diet: Regular Follow Up Appointments: Susanna Sutton MD [Primary Care Provider] - [facility] [Provider Group] Forms: [employer] Info Instructions
[2023-11-04 08:38] VITALS: BP 125/82; PULSE 75; RESP 16; TEMP 36.7; O2SAT 97
[2023-11-04] MEDS: IBUPROFEN 600 MG TABLET PO (08:43)
[2023-11-04] MEDS: DOCUSATE SODIUM 100 MG CAPSULE PO (08:43)
== END 2023-11-04 11:45 | disposition home or self-care (01) | DRG 540 ==
PROVIDERS: Advanced Practice Midwife; Admitting Provider Family Medicine; PCP Family Medicine; Visit Provider Obstetrics & Gynecology
PROC: (CPT 59514; principal; 2023-11-01 18:45)
DX: O24.420 Gestational diabetes mellitus in childbirth, diet controlled (principal); G89.18 Other acute postprocedural pain; O41.1230 Chorioamnionitis, third trimester, not applicable or unspecified; O77.0 Labor and delivery complicated by meconium in amniotic fluid; O72.1 Other immediate postpartum hemorrhage; O76 Abnormality in fetal heart rate and rhythm complicating labor and delivery; Z3A.38 38 weeks gestation of pregnancy; Z37.0 Single live birth
CPT/HCPCS: 01967; 01968; 36415; 59200; 64488; 76942; 82728; 82962; 85018; 85025; 86850; 86900; 86901; 87631; 88307; 99140; G0463; A9270; C1726; C9290; J0290; J0665; J0736; J1200; J1580; J1885; J2210; J2270; J2274; J2371; J2405; J2590; J2795; J3010; J7120